=== PATIENT | female | born 1945 | race Caucasian/White ===

== ENCOUNTER 2020-10-02 12:51 | Emergency (ER) | payer MEDICARE, BC ==
--- NOTE | 2020-10-02 14:16 | EDM.PDOC ---
ED HPI GENERAL MEDICAL PROBLEM - General Chief Complaint: General Stated Complaint: MEDICAL VIA [facility] Time Seen by Provider: 10/02/20 14:00 Source of Information: Reports: Patient, RN History Limitations: Reports: No Limitations - History of Present Illness Onset: Today, Gradual Duration: Day(s): Location: Reports: Head, Chest Quality: Reports: Ache Severity: Moderate Improves with: Reports: Rest Worsens with: Reports: Movement Context: Reports: Activity Associated Symptoms: Reports: Chest Pain, Cough, Headaches, Shortness of Breath - Related Data Allergies Allergy/AdvReac Type Severity Reaction Status Date / Time ciprofloxacin [From Cipro] Allergy Other Verified 10/02/20 12:58 egg Allergy Anaphylactic Verified 10/02/20 12:58 Shock Opioids - Morphine Analogues Allergy Shortness Verified 10/02/20 12:58 of Breath tramadol Allergy Shortness Verified 10/02/20 12:58 of Breath Home Meds: Home Meds Albuterol [Ventolin HFA] 1 puff INH Q4H PRN 10/02/20 [History] Alendronate Sodium [Fosamax] 70 mg PO WEEKLY 10/02/20 [History] Budesonide/Formoterol Fumarate [Symbicort 160-4.5 Mcg Inhaler] 1 puff IH DAILY 10/02/20 [History] EPINEPHrine [Epinephrine] 0.3 mg IM ASDIRECTED PRN 10/02/20 [History] Fluticasone Propionate [Flonase] 1 spray NS DAILY 10/02/20 [History] Lipase/Protease/Amylase [Zenpep Dr 40,000 Units Capsule] 1 each PO 6XDAY 10/02/20 [History] Montelukast [Singulair] 10 mg PO DAILY 10/02/20 [History] Multivitamin [Multi-Vitamin Daily] 1 each PO DAILY 10/02/20 [History] Venlafaxine [Effexor XR] 75 mg PO DAILY 10/02/20 [History] Past Medical History HEENT History: Reports: Impaired Vision Respiratory History: Reports: Asthma Gastrointestinal History: Reports: Other (See Below) Other Gastrointestinal History: [employer]PI [employer]CH[employer] History: Reports: - Infectious Disease History Infectious Disease History: Reports: Hepatitis C, Novel Coronavirus - Past Surgical History GI Surgical History: Reports: Bariatric Procedure Female Surgical History: Reports: Hysterectomy Musculoskeletal Surgical History: Reports: Knee Replacement, Other (See Below) Other Musculoskeletal Surgeries/Procedures:: Tendon transfer from leg to foot bilateral Social & Family History - Tobacco Use Tobacco Use Status *Q: Never Tobacco User - Caffeine Use Caffeine Use: Reports: Coffee - Recreational Drug Use Recreational Drug Use: No ED ROS GENERAL - Review of Systems Review Of Systems: See Below Constitutional: Reports: Weakness, Fatigue, Decreased Appetite HEENT: Reports: No Symptoms Respiratory: Reports: Shortness of Breath, Cough Cardiovascular: Reports: Chest Pain, Dyspnea on Exertion Endocrine: Reports: Fatigue GI/Abdominal: Reports: Diarrhea : Reports: No Symptoms Musculoskeletal: Reports: Other (Body pain and complains of pain and coldness in her fingers and feet) Skin: Reports: No Symptoms Neurological: Reports: No Symptoms Psychiatric: Reports: No Symptoms Hematologic/Lymphatic: Reports: No Symptoms ED EXAM, GENERAL - Physical Exam Exam: See Below Free Text/Narrative:: 75-year-old female who got Covid in August is now complaining today of something new that is anterior chest discomfort transient in nature with some associated shortness of breath without diaphoresis but she does have some nausea. Also notes continuing diarrhea with this illness and pain in her extremities and hands and feet in particular which could be because of vascular issues related to Covid. Her general exam is unremarkable without any focal findings noted. Exam Limited By: No Limitations General Appearance: Alert, WD/WN, Anxious Ears: Normal External Exam Nose: Normal Inspection Throat/Mouth: Normal Inspection Neck: Normal Inspection, Supple Respiratory/Chest: No Respiratory Distress, Lungs Clear, Normal Breath Sounds, No Accessory Muscle Use, Chest Non-Tender Cardiovascular: Regular Rate, Rhythm, No Murmur GI/Abdominal: Normal Bowel Sounds, Soft, Non-Tender, No Organomegaly Back Exam: Normal Inspection, Full Range of Motion Extremities: Normal Inspection, Normal Range of Motion, Non-Tender, No Pedal Edema Neurological: Alert, Oriented, Normal Cognition, No Motor/Sensory Deficits Psychiatric: Normal Affect, Normal Mood Skin Exam: Warm, Dry, Normal Color, No Rash Lymphatic: No Adenopathy Course - Vital Signs Text/Narrative:: 75-year-old female with at least a month history of Covid or longer comes in now because of something new namely her chest pain. She is feeling fine at the moment but states very fatigued as usual. New chest pain is worthy of a work-up with Covid or not and she agrees to that Radiologist reports the chest x-ray is negative. Cardiogram is negative. Troponin negative. Venous gases are good. D-dimer is elevated but compatible with Covid disease. She rests comfortably in the emergency department has no further discomfort and is discharged at 416 to follow with her doctor and return if she has new intercurrent symptoms that I advise her of Last Recorded V/S: Last Vital Signs Temp 36.4 C 10/02/20 13:07 Pulse 73 10/02/20 13:07 Resp 14 10/02/20 13:07 BP 116/70 10/02/20 13:07 Pulse Ox 97 10/02/20 13:07 - Orders/Labs/Meds Orders: Active Orders 24 hr Category Date Time Status EKG Documentation Completion [RC] ASDIRECTED Care 10/02/20 14:19 Active EKG 12 Lead [EK] Stat Ther 10/02/20 14:18 Ordered Labs: Laboratory Tests 10/02/20 10/02/20 10/02/20 Range/Units 14:17 14:17 14:18 WBC 6.5 (4.5-11.0) K/uL RBC 4.68 (3.30-5.50) M/uL Hgb 13.3 (12.0-15.0) g/dL Hct 42.7 (36.0-48.0) % MCV 91 (80-98) fL MCH 28 (27-31) pg MCHC 31 L (32-36) % Plt Count 219 (150-400) K/uL D-Dimer, Quantitative 946.78 H (0.0-500.0) ng/mL ABG Hemoglobin (12.0-16.0) g/dL ABG Oxyhemoglobin % ABG Carboxyhemoglobin (0.0-1.6) % ABG Methemoglobin % VBG pH (7.350-7.450) VBG pCO2 mm/Hg VBG pO2 mm/Hg VBG HCO3 mmol/L VBG Total CO2 mmol/L VBG O2 Saturation VBG O2 Content %vol VBG Base Excess mm/L O2 Delivery Device Sodium 141 (140-148) mmol/L Potassium 4.0 (3.6-5.2) mmol/L Chloride 103 (100-108) mmol/L Carbon Dioxide 26 (21-32) mmol/L Anion Gap 11.6 (5.0-14.0) mmol/L BUN 14 (7-18) mg/dL Creatinine 0.7 (0.6-1.0) mg/dL Est Cr Clr Drug Dosing 63.45 mL/min Estimated GFR (MDRD) > 60 (>60) Glucose 100 (74-106) mg/dL Calcium 9.0 (8.5-10.1) mg/dL Ferritin 80 (8-388) ng/ml Total Bilirubin 0.4 (0.2-1.0) mg/dL AST 37 (15-37) U/L ALT 49 (12-78) U/L Alkaline Phosphatase 89 (46-116) U/L Troponin I (0.000-0.056) ng/mL Total Protein 7.5 (6.4-8.2) g/dL Albumin 3.7 (3.4-5.0) g/dL Globulin 3.8 H (2.3-3.5) g/dL Albumin/Globulin Ratio 1.0 L (1.2-2.2) 10/02/20 10/02/20 Range/Units 14:18 14:18 WBC (4.5-11.0) K/uL RBC (3.30-5.50) M/uL Hgb (12.0-15.0) g/dL Hct (36.0-48.0) % MCV (80-98) fL MCH (27-31) pg MCHC (32-36) % Plt Count (150-400) K/uL D-Dimer, Quantitative (0.0-500.0) ng/mL ABG Hemoglobin 13.9 (12.0-16.0) g/dL ABG Oxyhemoglobin 35.9 % ABG Carboxyhemoglobin 1.5 (0.0-1.6) % ABG Methemoglobin 0.9 % VBG pH 7.422 (7.350-7.450) VBG pCO2 43.5 mm/Hg VBG pO2 24.2 mm/Hg VBG HCO3 27.8 mmol/L VBG Total CO2 24.9 mmol/L VBG O2 Saturation 36.8 VBG O2 Content 7.0 %vol VBG Base Excess 3.3 mm/L O2 Delivery Device Room air Sodium (140-148) mmol/L Potassium (3.6-5.2) mmol/L Chloride (100-108) mmol/L Carbon Dioxide (21-32) mmol/L Anion Gap (5.0-14.0) mmol/L BUN (7-18) mg/dL Creatinine (0.6-1.0) mg/dL Est Cr Clr Drug Dosing mL/min Estimated GFR (MDRD) (>60) Glucose (74-106) mg/dL Calcium (8.5-10.1) mg/dL Ferritin (8-388) ng/ml Total Bilirubin (0.2-1.0) mg/dL AST (15-37) U/L ALT (12-78) U/L Alkaline Phosphatase (46-116) U/L Troponin I < 0.017 (0.000-0.056) ng/mL Total Protein (6.4-8.2) g/dL Albumin (3.4-5.0) g/dL Globulin (2.3-3.5) g/dL Albumin/Globulin Ratio (1.2-2.2) Departure - Departure Time of Disposition: 16:17 Disposition: Home, Self-Care 01 Condition: Good Clinical Impression: 2019 novel coronavirus disease (COVID-19) - Discharge Information Referrals: PCP,None [Primary Care Provider] - Forms: ED Department Discharge Sepsis Event Note (ED) - Evaluation Sepsis Screening Result: No Definite Risk - Focused Exam Vital Signs: Vital Signs Temp Pulse Resp BP Pulse Ox 10/02/20 13:07 36.4 C 73 14 116/70 97 - My Orders Last 24 Hours: My Active Orders 10/02/20 14:18 EKG 12 Lead [EK] Stat 10/02/20 14:19 EKG Documentation Completion [RC] ASDIRECTED - Assessment/Plan Last 24 Hours: My Active Orders 10/02/20 14:18 EKG 12 Lead [EK] Stat 10/02/20 14:19 EKG Documentation Completion [RC] ASDIRECTED
--- NOTE | 2020-10-02 14:52 | CRLCR ---
INDICATION: Shortness of breath TECHNIQUE: Chest radiograph 1 view COMPARISON: None FINDINGS: Mediastinum: The mediastinum is normal in appearance. The heart silhouette is normal in size and morphology. Lung: Both lungs are unremarkable in appearance. No sign of pleural effusion seen. No pneumothorax is identified. Bone and Soft tissue: Unremarkable for age. IMPRESSION: 1. No acute cardiopulmonary disease is seen. Dictated by: George Bobo MD @ 10/02/2020 14:51:00 (Electronically Signed)
== END 2020-10-02 16:27 | disposition home or self-care (01) ==
LOC: JP.ED 12:51
DX: U07.1 COVID-19 (principal); J45.909 Unspecified asthma, uncomplicated; Z79.899 Other long term (current) drug therapy; Z88.1 Allergy status to other antibiotic agents; Z91.012 Allergy to eggs; Z88.5 Allergy status to narcotic agent
CPT/HCPCS: 36415; 71045; 80053; 82728; 82803; 84484; 85027; 85379; 93005; 99285-25

== ENCOUNTER 2023-04-20 15:25 | Emergency (ER) | payer MEDICARE, OTHER | END 2023-04-20 19:01 | disposition home or self-care (01) | LOC: JP.ED 15:25 | DX: S16.1XXA Strain of muscle, fascia and tendon at neck level, initial encounter (principal); S00.83XA Contusion of other part of head, initial encounter; Z88.1 Allergy status to other antibiotic agents; Z91.012 Allergy to eggs; Z88.5 Allergy status to narcotic agent; Z86.16 Personal history of COVID-19; Z79.899 Other long term (current) drug therapy; W01.198A Fall on same level from slipping, tripping and stumbling with subsequent striking against other object, initial encounter | CPT/HCPCS: 70450; 70486; 72125; 76377; 99283 ==